=== PATIENT | female | born 1995 | race Caucasian/White ===

== ENCOUNTER 2023-01-29 11:56 | Outpatient (CLI) | payer BC ==
[2023-01-29 12:42] VITALS: BP 124/69; PULSE 91; RESP 16; TEMP 98.9
== END 2023-01-29 12:25 | disposition home or self-care (01) ==
LOC: FBPOP 11:56
PROVIDERS: ATTEND Obstetrics & Gynecology
DX: Z53.9 Procedure and treatment not carried out, unspecified reason (principal)
CPT/HCPCS: 59025; 99213

== ENCOUNTER 2023-02-23 05:05 | Inpatient (IN) | payer BC ==
[2023-02-23] MEDS ORDERED: CARBOPROST TROMETHAMINE 250 MCG/ML 1 ML AMP IM PRN ×2 (06:08→17:57)
[2023-02-23] MEDS ORDERED: METHYLERGONOVINE 0.2 MG/ML 1 ML AMP IM PRN ×2 (06:08→17:57)
[2023-02-23] MEDS ORDERED: TRANEXAMIC 1,000 MG/100ML-NACL 1,000 MG in EMPTY BAG 1 BAG IV PRN ×2 (06:08→17:57)
[2023-02-23] MEDS ORDERED: TERBUTALINE 1 MG/ML VIAL SQ PRN (06:08)
[2023-02-23] MEDS ORDERED: OXYTOCIN 10 UNIT/ML 1 ML VIAL IM PRN ×2 (06:08→17:57)
[2023-02-23] MEDS ORDERED: LIDOCAINE 0.5% (PF) 5 MG/ML (50 ML SDV) SQ PRN (06:08)
[2023-02-23] MEDS ORDERED: miSOPROStoL 200 MCG TAB PO PRN ×2 (06:08→17:57)
[2023-02-23] MEDS ORDERED: OXYTOCIN 30 UNITS/500 ML NS 30 UNIT in SALINE 1 500ML.BAG IV SCH ×2 (06:15→19:15)
--- NOTE | 2023-02-23 06:18 | P.HPOB ---
History of Present Illness H&P Date: 02/23/23 Chief Complaint: Leaking of fluid This patient is a pleasant 27-year-old 1 para 0 female estimated date of confinement 02/27/2023 estimated gestational age 39-3/7 weeks who presents to labor and delivery complaining gush of fluid earlier this morning. Patient's care is per Dr. Fierro and appears to be uncomplicated. Patient was scheduled for Cervidil placement on Sunday evening. Review of Systems Genitourinary: Reports Menstruation: Reports amenorrhea Past Medical History Past Medical History: No Reported History History of Any Multi-Drug Resistant Organisms: None Reported Past Surgical History: Breast Surgery Past Anesthesia/Blood Transfusion Reactions: No Reported Reaction Past Psychological History: Anxiety, Depression Smoking Status: Never smoker Past Alcohol Use History: None Reported Past Drug Use History: None Reported Medications and Allergies Home Medications Medication Instructions Recorded Confirmed Type L.acidoph,Paracasei, B.lactis 1 capsule PO DAILY 01/29/23 02/23/23 History [Probiotic] Vit No.179/Iron/Folic 1 tablet PO DAILY 01/29/23 02/23/23 History [ Tablet] Allergies Allergy/AdvReac Type Severity Reaction Status Date / Time No Known Allergies Allergy Verified 02/23/23 05:09 Exam Intake and Output 02/22/23 02/22/23 02/23/23 14:59 22:59 06:59 Other: Weight 98.883 kg - OBG Physical Exam Abdomen: bowel sounds normal, no diffuse tenderness, no bruit present, no guarding noted, no hepatomegaly, no splenomegaly, no mass Vulva: both: normal Vagina: normal moisture, no discharge Cervix: no lesion (Fingertip and thick), no discharge Uterus: enlarged Results blood work shows she is O positive, rubella immune, RPR is nonreactive, hepatitis B is negative, HIV is nonreactive, group B strep was negative, most recent ultrasound showed estimated weight to be 5 lbs. 13 oz. that was on February 05 Assessment and Plan Assessment: This is a pleasant 27-year-old 1 para 0 female 39-3/7 weeks gestation admitted to labor and delivery with spontaneous rupture membranes and patient is having no contractions. Plan at this time is Pitocin induction of labor and anticipate vaginal delivery. (1) 39 weeks gestation of Current Visit: Yes Status: Acute Code(s): Z3A.39 - 39 WEEKS GESTATION OF SNOMED Code(s): 87715581 (2) PROM (premature rupture of membranes) Current Visit: Yes Status: Acute Code(s): O42.90 - CLAUDY ROM, 7TH0 BETW RUPT & ONST LABR, UNSP WEEKS OF GEST SNOMED Code(s): 68425171
[2023-02-23 07:17] LABS: Basophils % (A) 0 %; Eosinophils # (A) 0.2 k/uL (0-0.7); Eosinophils % (A) 1 %; HCT 30.9 % (34.0-46.0); HGB 10.5 gm/dL (11.4-16.0); Lymphocytes # (A) 1.4 k/uL (1.0-4.8); Lymphocytes % (A) 10 %; MCH 27.5 pg (25.0-35.0); MCHC 34.1 g/dL (31.0-37.0); MCV 80.8 fL (80.0-100.0); Mean Platelet Volume 9.1; Monocytes % (A) 7 %; Neutrophils # (A) 11.5 k/uL (1.3-7.7); Neutrophils % (A) 81 %; Platelet Count 239 k/uL (150-450); RBC 3.82 m/uL (3.80-5.40); RDW 14.5 % (11.5-15.5); WBC 14.2 k/uL (3.8-10.6)
[2023-02-23] MEDS: LACTATED RINGERS 1,000 ML IV SCH ×4 (07:33→20:12)
[2023-02-23] MEDS: NALBUPHINE 10 MG/ML (10 ML MDV) IV PRN ×2 (12:00→17:11)
[2023-02-23] MEDS ORDERED: ROPIVACAINE 5 MG/ML 30 ML VIAL ONE (14:02)
[2023-02-23] MEDS ORDERED: SODIUM CHLORIDE 0.9% 250 ML BAG ONE (14:02)
[2023-02-23] MEDS ORDERED: fentaNYL (PF) 50 MCG/ML 5 ML AMP ONE (14:02)
[2023-02-23] MEDS ORDERED: CITRIC ACID-SODIUM CITRATE 15 ML CUP PO ONE (17:57)
[2023-02-23] MEDS ORDERED: diphenhydrAMINE 50 MG/ML 1 ML VIAL IVP PRN (19:01)
[2023-02-23] MEDS ORDERED: ZOLPIDEM 5 MG TAB PO PRN (19:01)
[2023-02-23] MEDS ORDERED: diphenhydrAMINE 25 MG CAP PO PRN (19:01)
[2023-02-23] MEDS ORDERED: METOCLOPRAMIDE 5 MG/ML 2 ML VIAL IVP PRN (19:01)
[2023-02-23] MEDS ORDERED: NALOXONE 0.4 MG/ML 1 ML VIAL IV PRN (19:01)
[2023-02-23] MEDS ORDERED: ONDANSETRON 4 MG/2 ML VIAL IVP PRN (19:01)
[2023-02-23] MEDS ORDERED: HYDROmorphone PCA 10 MG/50 ML BAG IV PRN (19:01)
[2023-02-23] MEDS ORDERED: LANOLIN CREAM 5 GM TUBE TOPICAL PRN (19:01)
--- NOTE | 2023-02-23 19:18 | P.OP ---
Date of Procedure: 02/23/23 Preoperative Diagnosis: #1: 39-3/7 week intrauterine . #2: Premature rupture membranes. #3: Cephalopelvic dystocia requesting section Postoperative Diagnosis: #1: Same. #2: Straight occiput posterior presentation. #3: Nuchal cord 1 Procedure(s) Performed: Primary low transverse section Anesthesia: CLAUDETTEA Surgeon: Brian Carlisle [employer] Supervisor #1: Fawn Schofield Estimated Blood Loss (ml): 800 Pathology: none sent Condition: stable Disposition: floor Indications for Procedure: Please see dictated H&P for intimate details of this patient's admission. We've summary this is a pleasant 27-year-old 1 para 0 female 39-3/7 weeks gestation who is admitted to labor and delivery with spontaneous rupture membranes this morning. Patient's having no contractions and she is a fingertip dilated. Patient has Pitocin induction of labor. Patient progresses gets one dose of Nubain and then has an attempted epidural placed. Unfortunately the epidural is intrathecal and patient is unable to use this for pain control thr oughout her labor. Patient does progress and gets to complete. At this time she pushes the head to 0 station but after a period of time head does not come below 0 station and patient is in uncontrollable pain despite IV pain medications. At this time she requests an epidural. A patient's centered huddle was then done between the patient, her partner, and family and a shared decision is made to proceed with section at this time for delivery. Patient does understand the need for general anesthetic per anesthesia recommendations. She also understands the risks of infection, bleeding, possible injury bowel, bladder, vessels, and/or other organs. All the patient's questions are answered and a written consent is obtained. Operative Findings: This is a vigorous viable male Apgars are 8 and 9 delivery time is 1827 hrs. was straight occiput posterior presentation and had a nuchal cord 1. weight was 7 lbs. 3 oz. Description of Procedure: This patient has a Sterling catheter placed to straight drain. She is subsequently taken to the operating room where she is laid in the supine position. She has abdominal prep and drape. The appropriate timeout is done. Patient then undergoes rapid sequence general endotracheal anesthesia without incident. With an adequate level of anesthesia, scalpel is taken Pfannenstiel skin incision is then made. A second scalpel is taken down the fascia the fascia scored with a knife. Fascial incision extended bilaterally using the Zambrano scissors. Fascia is then dissected sharply off the rectus muscles. Rectus muscles are the peritoneum identified and entered sharply. Peritoneal incision extended superior and inferior without difficulty. Bladder blade is then placed. Bladder peritoneum taken sharply off the lower uterine segment. Scalpels and taken low transverse uterine incision is then made. Using a hemostat I enter the uterine cavity bluntly and there is loss of clear fluid. Uterine incision is extended bluntly. The infant is found to be straight occiput posterior presentation. The infant's head is easily delivered through the incision and delivered with fundal pressure. There is a nuchal cord 1 which is easily reduced. With fundal pressure we then have delivery the rest this 's body. This is a vigorous viable male infant Apgars are 8 and 9 delivery time is 1827 hrs. After delivery of the infant the umbilical cord is doubly clamped and cut appears to be trivascular. The placenta is then manually extracted intact. Uterus is then externalized and uterine incision demarcated with Foster clamps. Uterine incision then closed using 0 Vicryl running locked fashion 2 layers. Excellent hemostasis is noted. The bladder peritoneum was then reapproximated using a 3-0 Vicryl. Excess fluid is removed from the abdomen and pelvis. The uterus, tubes, ovaries appear normal for term gestation. Uterus is placed back into the abdomen. The parietal peritoneum was then closed using 0 Vicryl running fashion. Rectus muscles reapproximated Vicryl interrupted fashion. Fascial incision is then closed using 0 PDS. Fascial incision is intact and hemostatic. Subcutaneous tissues and closed using a 3-0 Vicryl. Skin is and closed using brynn. All counts are correct 3. There are no complications. Infant is taken to the delivery room and the mother after extubation is taken to the birthing suite is well.
[2023-02-23] MEDS: SENNOSIDES-DOCUSATE SODIUM 1 EACH TAB PO SCH (23:28)
[2023-02-24] MEDS: KETOROLAC 15 MG/ML 1 ML VIAL IVP SCH ×3 (00:35→14:07)
[2023-02-24] MEDS: IBUPROFEN 600 MG TAB PO SCH ×4 (02:21→20:18)
[2023-02-24] MEDS: ACETAMINOPHEN TAB 500 MG TAB PO SCH ×4 (04:02→17:21)
[2023-02-24 06:52] LABS: Basophils % (A) 0 %; Eosinophils % (A) 0 %; HCT 27.6 % (34.0-46.0); HGB 9.3 gm/dL (11.4-16.0); Lymphocytes # (A) 1.2 k/uL (1.0-4.8); Lymphocytes % (A) 6 %; MCH 27.5 pg (25.0-35.0); MCHC 33.9 g/dL (31.0-37.0); MCV 81.1 fL (80.0-100.0); Monocytes # (A) 1.1 k/uL (0-1.0); Monocytes % (A) 5 %; Neutrophils # (A) 16.9 k/uL (1.3-7.7); Neutrophils % (A) 87 %; Platelet Count 216 k/uL (150-450); RDW 14.6 % (11.5-15.5); WBC 19.5 k/uL (3.8-10.6)
[2023-02-24] MEDS: LACTATED RINGERS 1,000 ML IV SCH ×2 (07:02→11:10)
--- NOTE | 2023-02-24 07:28 | P.PNOBGPC ---
Subjective - Subjective Patient reports: Reports appetite normal, Reports voiding normally, Reports pain well controlled, Reports ambulating normally : doing well Objective - Vital Signs Latest vital signs: Vital Signs Temp Pulse Resp BP Pulse Ox 02/24/23 04:00 98.0 F 66 16 106/58 02/24/23 00:00 98.6 F 84 16 126/71 97 02/23/23 21:10 96.5 F L 71 16 124/68 99 02/23/23 20:40 75 16 115/58 97 02/23/23 20:10 84 16 131/70 97 02/23/23 19:55 77 16 125/62 96 02/23/23 19:40 89 16 131/70 98 02/23/23 19:25 89 16 146/76 98 02/23/23 19:10 97.7 F 96 16 129/72 96 02/23/23 08:06 97 F L 85 18 118/65 Intake and Output 02/23/23 02/24/23 02/24/23 22:59 06:59 14:59 Output Total 1600 Balance -1600 Output: Urine 750 Estimated Blood Loss 800 Output, Quantitative 50 Blood Loss Other: Voiding Method Indwelling Catheter # Voids 4 0 - Exam Lungs: bilateral: normal Chest: Normal S1, Normal S2 Extremities: Present: normal Abdomen: Present: normal appearance, soft. Absent: distention, tenderness Incision: Present: normal, dry, intact Uterus: Present: normal, firm - Labs Labs: Abnormal Lab Results - Last 24 Hours (Table) 02/24/23 Range/Units 06:34 WBC 19.5 H (3.8-10.6) k/uL RBC 3.40 L (3.80-5.40) m/uL Hgb 9.3 L (11.4-16.0) gm/dL Hct 27.6 L (34.0-46.0) % Neutrophils # 16.9 H (1.3-7.7) k/uL Monocytes # 1.1 H (0-1.0) k/uL Assessment and Plan Assessment: Post operative day #1. Patient is resting without new complaints. Vital signs are stable she is afebrile. Uterus is firm nontender she's having normal lochia. Her incision is intact and dry. CBC shows an appropriate drop in her hemoglobin. White count 19 which is most consistent with recent delivery however I'm going to repeat CBC tomorrow. Plan today is to discontinue her catheter, discontinue the [employer] TECHNICIAN, encourage ambulation, and advance her diet. (1) 39 weeks gestation of Current Visit: Yes Status: Acute Code(s): Z3A.39 - 39 WEEKS GESTATION OF SNOMED Code(s): 17574832 (2) PROM (premature rupture of membranes) Current Visit: Yes Status: Acute Code(s): O42.90 - CLAUDY ROM, 7TH0 BETW RUPT & ONST LABR, UNSP WEEKS OF GEST SNOMED Code(s): 84561242
[2023-02-24] MEDS: SENNOSIDES-DOCUSATE SODIUM 1 EACH TAB PO SCH ×2 (08:08→20:18)
[2023-02-25] MEDS: ACETAMINOPHEN TAB 500 MG TAB PO SCH ×4 (00:01→16:28)
[2023-02-25] MEDS: LACTATED RINGERS 1,000 ML IV SCH (01:03)
[2023-02-25] MEDS: KETOROLAC 15 MG/ML 1 ML VIAL IVP SCH ×3 (01:41→21:55)
[2023-02-25] MEDS: IBUPROFEN 600 MG TAB PO SCH ×3 (04:20→18:50)
--- NOTE | 2023-02-25 07:38 | P.PNOBGPC ---
Subjective - Subjective Patient reports: Reports appetite normal, Reports voiding normally, Reports pain well controlled, Reports ambulating normally : doing well Objective - Vital Signs Latest vital signs: Vital Signs Temp Pulse Resp BP Pulse Ox 02/25/23 00:00 99.5 F 86 16 117/71 98 02/24/23 20:00 99.2 F 83 18 98/62 02/24/23 16:41 98.7 F 76 16 115/68 02/24/23 12:00 98.3 F 76 16 114/68 97 02/24/23 08:00 98.1 F 68 16 106/67 97 Intake and Output 02/24/23 02/25/23 02/25/23 22:59 06:59 14:59 Other: # Voids 1 - Exam Lungs: bilateral: normal Chest: Normal S1, Normal S2 Extremities: Present: normal Abdomen: Present: normal appearance, soft. Absent: distention, tenderness Incision: Present: normal, dry, intact Uterus: Present: normal, firm Assessment and Plan Assessment: Postoperative day #2. Patient is resting without new complaints of those she still having some discomfort. Vital signs are stable, she does have a low-grade temperature to 99.5 last night. I did give her 2 doses of antibiotics after her . Patient is tolerating regular diet, ambulating, and urinating. Plan today is to check CBC, continue routine postoperative care and discharge home most likely tomorrow. (1) 39 weeks gestation of Current Visit: Yes Status: Acute Code(s): Z3A.39 - 39 WEEKS GESTATION OF SNOMED Code(s): 27762247 (2) PROM (premature rupture of membranes) Current Visit: Yes Status: Acute Code(s): O42.90 - CLAUDY ROM, 7TH0 BETW RUPT & ONST LABR, UNSP WEEKS OF GEST SNOMED Code(s): 79662326
[2023-02-25 08:42] LABS: Basophils % (A) 0 %; Eosinophils # (A) 0.1 k/uL (0-0.7); Eosinophils % (A) 1 %; HCT 31.4 % (34.0-46.0); HGB 10.3 gm/dL (11.4-16.0); Lymphocytes # (A) 1.6 k/uL (1.0-4.8); Lymphocytes % (A) 11 %; MCH 26.9 pg (25.0-35.0); MCHC 32.7 g/dL (31.0-37.0); MCV 82.4 fL (80.0-100.0); Mean Platelet Volume 8.9; Monocytes # (A) 0.7 k/uL (0-1.0); Monocytes % (A) 5 %; Neutrophils # (A) 12.3 k/uL (1.3-7.7); Neutrophils % (A) 82 %; Platelet Count 267 k/uL (150-450); RBC 3.81 m/uL (3.80-5.40)
[2023-02-25] MEDS: SENNOSIDES-DOCUSATE SODIUM 1 EACH TAB PO SCH ×2 (08:42→21:56)
[2023-02-25] MEDS: SIMETHICONE 80 MG CHEWABLE PO PRN ×2 (08:47→18:54)
[2023-02-25 12:08] VITALS: RESP 16
[2023-02-26] MEDS: ACETAMINOPHEN TAB 500 MG TAB PO SCH ×3 (00:38→07:48)
[2023-02-26] MEDS: LACTATED RINGERS 1,000 ML IV SCH (03:25)
[2023-02-26] MEDS: IBUPROFEN 600 MG TAB PO SCH ×3 (05:33→11:31)
--- NOTE | 2023-02-26 07:29 | P.DS ---
Providers Date of admission: 02/23/23 05:25 Expected date of discharge: 02/26/23 Attending physician: Chelsea Fierro Primary care physician: Stated None - Discharge Diagnosis(es) (1) Status post primary low transverse section Current Visit: Yes Status: Acute Hospital Course: Percent was spent days rupture membranes. She underwent Pitocin augmentation and had an epidural placed but the epidural and intrathecal. She underwent a primary low transverse . Post operative course was uneventful. She denies nausea, vomiting, chest pain, shortness of breath or calf pain. Her pain is well-controlled. She would be discharged home postoperative day #3 in stable condition to follow-up with me in one week. Plan - Discharge Summary New Discharge Prescriptions: New Ibuprofen [Motrin] 600 mg PO Q6H #40 tab oxyCODONE HCL [OxyIR] 5 mg PO Q4HR PRN #18 tab PRN Reason: Pain Scale 4 - 6 No Action Vit No.179/Iron/Folic [ Tablet] 1 tablet PO DAILY L.acidoph,Paracasei, B.lactis [Probiotic] 1 capsule PO DAILY Discharge Medication List L.acidoph,Paracasei, B.lactis [Probiotic] 1 capsule PO DAILY 01/29/23 [History] Vit No.179/Iron/Folic [ Tablet] 1 tablet PO DAILY 01/29/23 [History] Ibuprofen [Motrin] 600 mg PO Q6H #40 tab 02/24/23 [Rx] oxyCODONE HCL [OxyIR] 5 mg PO Q4HR PRN #18 tab 02/24/23 [Rx] Follow up Appointment(s)/Referral(s): Chelsea Fierro DO [Doctor of Osteopathic Medicine] - 1 Week (PP 04/09/23 @11:15 Am) Discharge Disposition: HOME SELF-CARE
[2023-02-26] MEDS: SENNOSIDES-DOCUSATE SODIUM 1 EACH TAB PO SCH (07:46)
[2023-02-26 07:53] VITALS: TEMP 97.7
[2023-02-26 12:08] VITALS: BP 110/67; PULSE 67
== END 2023-02-26 13:25 | disposition home or self-care (01) | DRG 787 ==
LOC: FBPOP 05:05 → 4FBP 05:25
PROVIDERS: ADMIT Obstetrics & Gynecology; ATTEND Obstetrics & Gynecology
PROC: 3E033VJ Introduction of Other Hormone into Peripheral Vein, Percutaneous Approach (ICD-10-PCS; 2023-02-23)
PROC: 10D00Z1 Extraction of Products of Conception, Low, Open Approach (ICD-10-PCS; principal; 2023-02-23 18:00)
DX: O65.4 Obstructed labor due to fetopelvic disproportion, unspecified (principal); O86.4 Pyrexia of unknown origin following delivery; O42.92 Full-term premature rupture of membranes, unspecified as to length of time between rupture and onset of labor; F32.A Depression, unspecified; F41.9 Anxiety disorder, unspecified; O69.81X0 Labor and delivery complicated by cord around neck, without compression, not applicable or unspecified; O99.344 Other mental disorders complicating childbirth; Z3A.39 39 weeks gestation of pregnancy; Z37.0 Single live birth
CPT/HCPCS: 59025; 84112; 85025; 86850; 86900; 86901; 99213